=== PATIENT | male | born 1985 | race Two or more races ===

== ENCOUNTER 2018-02-26 23:28 | Emergency (ER) | payer MEDICAID ==
[~2018-02-26] VITALS: Ht 182.9 cm; Wt 104.3 kg
[2018-02-27] MEDS ORDERED: HYDROCODON-ACE1 EA15 ORAL (00:26)
[2018-02-27] MEDS ORDERED: IBUPROFEN600 MG ORAL (00:26)
--- NOTE | 2018-02-27 00:27 | Emergency Room Report ---
History of Present Illness General Chief Complaint: Lower Extremity Injury Source: Patient Present Illness HPI Is a 32-year-old male with no past medical history. He presents with chief complaint of left foot pain. Onset was 4 days ago. He was getting out of the car stepped on the curb and rolled his ankle. Since then his left foot been painful and swollen. Worse when he bear weight. Throbbing in nature. Day and half to 2 days later he started having a fever. Also said that he has slight congestion and coughing. Today with diarrhea. Foot is throbbing more. Pain is 8 out of 10. Allergies: Coded Allergies: No Known Allergies (Unverified , 02/26/18) Patient History Past Medical History: see triage record, old chart reviewed Past Surgical History: none Pertinent Family History: none Social History: Denies: smoking Immunizations: other Reviewed Nursing Documentation: PMH: Agreed; PSxH: Agreed Nursing Documentation-PM Past Medical History: No Stated History Review of Systems Constitutional: Reports: fever Eye: Denies: eye pain, blurred vision ENT: Denies: ear pain, nose congestion, throat swelling Respiratory: Reports: cough; Denies: shortness of breath Cardiovascular: Denies: chest pain, palpitations Gastrointestinal: Reports: diarrhea; Denies: abdominal pain, nausea, vomiting Musculoskeletal: Reports: joint pain, joint swelling, muscle pain; Denies: back pain Skin: Denies: rash Neurological: Denies: headache, numbness Endocrine: Denies: increased thirst, increased urine Hematologic/Lymphatic: Denies: easy bruising All Other Systems: negative except mentioned in HPI Physical Exam Vital Signs Date Time Temp Pulse Resp B/P (MAP) Pulse Ox O2 Delivery O2 Flow Rate FiO2 02/26/18 23:30 99.4 109 16 148/82 95 Room Air 99.3 vitals low-grade fever Sp02 EP Interpretation: reviewed, normal General Appearance: well appearing, no apparent distress, alert Head: normocephalic, atraumatic Eyes: bilateral eye PERRL, bilateral eye EOMI ENT: hearing grossly normal, normal pharynx Neck: full range of motion, supple, no meningismus Respiratory: chest non-tender, lungs clear, normal breath sounds Cardiovascular #1: regular rate, rhythm, no murmur Gastrointestinal: normal bowel sounds, non tender, no mass, no organomegaly, no bruit, non-distended Musculoskeletal: back normal, other - Left foot: He has tenderness and edema to the dorsum of the foot. No fluctuant area. No abscess. No warmth. Ankle is nontender full range of motion. Dorsalis pedis pulses 2+. Sensation normal. Psychiatric: mood/affect normal Skin: warm/dry Procedures Splinting Splinting : Consent: Verbal Location: Left foot Pre-Made Type: TRISTIN wrap Pre-Proc Neuro Vasc Exam: normal Post-Proc Neuro Vasc Exam: normal Patient Tolerated: Well Complications: None Progress patient brought his own crutches. They were adjusted. Medical Decision Making Diagnostic Impression: Primary Impression: Sprain of foot, left Qualified Codes: S93.602A - Unspecified sprain of left foot, initial encounter ER Course Patient with a left foot sprain. No evidence of any fracture or dislocation. No evidence of septic joint or abscess. he also probably has a concomitant viral illness. Other X-Ray Diagnostic Results Other X-Ray Diagnostic Results : X-Ray ordered: X-rays left foot # of Views/Limited Vs Complete: 3 View Indication: Pain EP Interpretation: Yes Interpretation: no dislocation, no soft tissue swelling, no fractures Impression: No acute disease Electronically Signed by: Addison Morales mD Last Vital Signs Date Time Temp Pulse Resp B/P (MAP) Pulse Ox O2 Delivery O2 Flow Rate FiO2 02/26/18 23:59 99.4 02/26/18 23:30 109 16 148/82 95 Room Air Status: improved Disposition: HOME, SELF-CARE Condition: Stable Scripts Ibuprofen* (MOTRIN*) 600 Mg Tablet 600 MG ORAL THREE TIMES A DAY, #30 TAB 0 Refills Prov: ADDISON MORALES M.D. 02/27/18 Hydrocodone/Acetaminophen 5-325* (HYDROCODONE/ACETAMINOPHEN 5-325*) 1 Each Tablet 1 TAB ORAL Q6H PRN for For Pain, #20 TAB 0 Refills Prov: ADDISON MORALES M.D. 02/27/18 Referrals: NOT CHOSEN NICO/,REFERRING (PCP) Patient Instructions: Foot Sprain Additional Instructions: Rest. Elevate foot. Ice pack area. Use crutches. Follow-up with your DrBeryl in 3-5 days if not better. Return if worse. ADDISON MORALES M.D. February 27, 2018 00:27
[2018-02-27 00:28] VITALS: BP 148/82
--- NOTE | 2018-02-27 10:07 | Diagnostic Imaging Report ---
Indication: Pain in left foot, trauma Technique: 3 views left foot Comparison: none Findings: No acute fractures. No dislocations. The joint spaces are preserved Impression: Negative
== END 2018-02-27 00:33 | disposition home or self-care (01) ==
LOC: EMR 23:45
DX: S93.602A Unspecified sprain of left foot, initial encounter (principal); X50.1XXA Overexertion from prolonged static or awkward postures, initial encounter; Y92.89 Other specified places as the place of occurrence of the external cause
CPT/HCPCS: 29515; 99284